=== PATIENT | female | born 1945 | race Caucasian/White ===

== ENCOUNTER 2016-11-10 08:19 | Day surgery (SDC) | payer MEDICARE, OTHER ==
[~2016-11-10 08:19] MED LIST: BEN25 PO; CARTIA XT300 MG/24 PO; COZAAR100 MG PO; GLUCOTRO10 PO; HCTZ25B PO; KLOR-CON M1010 MEQ PO; LINZESS 145 M145 MCG PO; MULTIPLE VIT PO; NYSTATPOW TOP; REG PO; STARLIX120 PO; VIIBRYD20 MG PO; WELLXL300 PO; X25 PO; X5 PO; XANAX1 MG PO; ZOFRANODT8 PO; ZYRTEC ALLGY10 MG PO
[2016-11-10 09:16] LABS: CALCIUM, SERUM 9.1 MG/DL (8.5-10.4); CHLORIDE, SERUM 98 MMOL/L (96-112); CO2 (CARBON DIOXIDE) 25 MMOL/L (24-34); CREATININE 0.79 MG/DL (0.55-1.02); GFR AFRICAN AMERICAN 88 ML/MIN (>=60); GFR NON AFRICAN AMERICAN 76 ML/MIN (>=60); GLUCOSE, SERUM 140 MG/DL (60-99); POTASSIUM, SERUM 3.7 MMOL/L (3.5-5.3); SODIUM, SERUM 137 MMOL/L (135-148)
[2016-11-10 09:20] LABS: BUN (BLOOD UREA NITROGEN) 15 MG/DL (6-23)
[2016-11-10 09:22] LABS: BASOPHILS 0 %; EOSINOPHILS 0.3 %; EOSINOPHILS ABSOLUTE 0.02 10/3/uL (0.0-0.53); HEMATOCRIT 34.5 % (36.0-48.0); HEMOGLOBIN 11.9 g/dL (12.0-16.0); IMMATURE GRANULOCYTES 0.2 %; IMMATURE GRANULOCYTES ABSOLUTE 0.01 10/3/uL (0.0-0.11); LYMPHOCYTES 34.8 %; MEAN CORPUS HGB CONC 34.5 g/dL (32.0-36.0); MEAN CORPUSCULAR HEMOGLOB 28.3 pg (26.0-34.0); MONOCYTES 7.6 %; NEUTROPHILS 57.1 %; NEUTROPHILS ABSOLUTE 3.77 10/3/uL (2.02-8.40); NUCLEATED RED BLOOD CELLS 0.8 /100WBC (0-0); RBC DISTRIBUTION WIDTH 18.5 % (12.0-16.0); RED CELL COUNT 4.21 10/6/uL (4.0-5.6); WHITE BLOOD CELLS 6.6 10/3/uL (4.5-10.5)
[2016-11-10 09:24] LABS: MEAN CORPUSCULAR VOLUME 81.9 fL (80-100); PLATELET COUNT 37 10/3/uL (150-400); RETICULOCYTE COUNT 0.5 % (0.5-2.5); RETICULOCYTE COUNT ABSOLUTE 21.1 10/3/uL (20.2-119.8)
[2016-11-10 09:25] LABS: MANUAL DIFF NO %
[2016-11-10 09:33] LABS: ANISOCYTOSIS 1+ (5-10/OIF) (0-5/OIF); MICROCYTES 1+ (5-10/OIF) (0-5/OIF)
[2016-12-06] MEDS ORDERED: ULTRAM50 PO (15:23)
[2016-12-06] MEDS ORDERED: MIRALAX POWDER1 PKT PO (15:25)
[2016-12-06] MEDS ORDERED: COMP10B PO (15:27)
[2016-12-06] MEDS ORDERED: DACOGEN50 MG IV (15:27)
[2016-12-06] MEDS ORDERED: VITAMIN D31000 UNIT PO (15:28)
[2016-12-06] MEDS ORDERED: SUDAFED PO (15:29)
[2016-12-07] MEDS ORDERED: DSS PO (10:42)
[2016-12-07] MEDS ORDERED: LEVAQUIN5T PO (10:49)
== END 2016-11-10 11:59 | disposition home or self-care (01) ==
LOC: SDC 08:19
PROVIDERS: Pathology Cytopathology
PROC: 07DR3ZX Extraction of Iliac Bone Marrow, Percutaneous Approach, Diagnostic (ICD-10-PCS; principal; 2016-11-10 11:00)
DX: D69.6 Thrombocytopenia, unspecified (principal); D46.9 Myelodysplastic syndrome, unspecified; K31.84 Gastroparesis; F41.0 Panic disorder [episodic paroxysmal anxiety]; I10 Essential (primary) hypertension; E11.9 Type 2 diabetes mellitus without complications; Z88.0 Allergy status to penicillin; Z88.2 Allergy status to sulfonamides; Z88.5 Allergy status to narcotic agent; J30.2 Other seasonal allergic rhinitis; M19.90 Unspecified osteoarthritis, unspecified site; Z90.49 Acquired absence of other specified parts of digestive tract; K57.92 Diverticulitis of intestine, part unspecified, without perforation or abscess without bleeding; K58.9 Irritable bowel syndrome, unspecified; Z98.51 Tubal ligation status; F32.9 Major depressive disorder, single episode, unspecified; D64.9 Anemia, unspecified; Z98.890 Other specified postprocedural states; H26.9 Unspecified cataract
CPT/HCPCS: 80048; 82962; 85025; 85045; 88237; 88305; 88311; 88313; 88342; A9270-GY